=== PATIENT | female | born 1935 | race African-American/Black ===

== ENCOUNTER 2021-01-25 23:29 | Inpatient (IN) | payer OTHER ==
[~2021-01-25] VITALS: Ht 167.6 cm; Wt 45.8 kg
[2021-01-26] MEDS ORDERED: SODIUM CHLORIDE 0.9% 1,000 ML IV ONE (00:15)
[2021-01-26 00:58] LABS: HEMATOCRIT. 34.9 % (36.0-48.0); HEMOGLOBIN. 11.8 g/dL (12.0-16.0); MEAN CORPUSCULAR HEMOGLOBIN 27.2 pg (28.0-32.0); MEAN CORPUSCULAR VOLUME 80.3 fL (81.0-99.0); MEAN PLATELET VOLUME 7.9 fl (7.4-10.4); PLATELET 442 x1000/uL (130-400); RED BLOOD CELL COUNT 4.34 mill/uL (4.2-5.4); RED CELL DISTRIBUTION WIDTH 18.5 % (11.6-14.6)
[2021-01-26 01:04] LABS: CHLORIDE 103 mEq/L (98-107)
[2021-01-26 01:13] LABS: CREATINE KINASE 73 IU/L (26-192)
[2021-01-26 01:23] LABS: CLARITY URINE CLEAR (CLEAR); COLOR URINE DARK YELLOW (YELLOW); KETONES URINE 2+ (NEGATIVE); LEUKOCYTE ESTERASE URINE NEGATIVE (NEGATIVE); NITRITE URINE NEGATIVE (NEGATIVE); OCCULT BLOOD URINE NEGATIVE (NEGATIVE); PH URINE 5.5 (4.5-8.0); PROTEIN URINE 1+ (NEGATIVE)
[2021-01-26 01:27] LABS: PROTHROMBIN TIME 10.5 sec (9.6-11.0)
[2021-01-26 02:12] LABS: PLATELET ESTIMATE INCREASED
[2021-01-26] MEDS ORDERED: LOSA25TA3 MT (04:51)
[2021-01-26] MEDS ORDERED: CLON0.1T MT (04:51)
[2021-01-26] MEDS ORDERED: AMLO2.5T2 MT (04:51)
[2021-01-26 05:30] VITALS: BP 167/97
[2021-01-26] MEDS ORDERED: NITROGLYCERIN 0.4MG TABLET SL SL PRN (06:00)
[2021-01-26] MEDS ORDERED: IOHEXOL-300 100 ML BOTTLE ONE (06:20)
[2021-01-26] MEDS: CLONIDINE 0.1MG TABLET PO PRN (06:44)
[2021-01-26 08:00] VITALS: BP 153/93
[2021-01-26] MEDS ORDERED: ASPIRIN 81MG TABLET PO SCH (09:00)
[2021-01-26] MEDS ORDERED: ENOXAPARIN 40MG/0.4ML SYR SUBCUT SCH (09:00)
[2021-01-26] MEDS: ENOXAPARIN 30MG/0.3ML SYR SUBCUT SCH (09:43)
[2021-01-26] MEDS: METOPROLOL TARTRATE 50MG TABLET PO SCH ×2 (09:44→21:39)
[2021-01-26 10:30] VITALS: BP 153/93
[2021-01-26 10:34] LABS: HEMOGLOBIN. 12.1 g/dL (12.0-16.0); MEAN CORPUSCULAR HEMOGLOBIN 26.7 pg (28.0-32.0); MEAN CORPUSCULAR VOLUME 79.9 fL (81.0-99.0); MEAN PLATELET VOLUME 7.7 fl (7.4-10.4); PLATELET 432 x1000/uL (130-400); RED BLOOD CELL COUNT 4.51 mill/uL (4.2-5.4); RED CELL DISTRIBUTION WIDTH 18.6 % (11.6-14.6)
[2021-01-26] MEDS ORDERED: POTASSIUM CHLORIDE 20MEQ TABLET SR PO SCH (10:45)
[2021-01-26] MEDS ORDERED: BISACODYL 10MG SUPP PR SCH (10:45)
[2021-01-26 12:00] VITALS: BP 156/94
[2021-01-26] MEDS ORDERED: BISACODYL 10MG SUPP PR PRN (12:00)
[2021-01-26] MEDS: DEXT 5%/0.45% NACL KCL 20MEQ/L 1,000 ML IV SCH ×2 (13:00→21:39)
[2021-01-26] MEDS: AMLODIPINE 5MG TABLET PO SCH (13:07)
[2021-01-26 13:35] LABS: PLATELET ESTIMATE SLIGHTLY INCREASED
[2021-01-26 16:00] VITALS: BP 142/90
[2021-01-26] MEDS: LACTULOSE 20G/30ML UDC PO PRN (17:35)
[2021-01-26 20:00] VITALS: BP 145/82
[2021-01-27] VITALS: BP 159/83
[2021-01-27 04:00] VITALS: BP 148/83
[2021-01-27] MEDS: DEXT 5%/0.45% NACL KCL 20MEQ/L 1,000 ML IV SCH ×2 (06:40→17:43)
[2021-01-27 08:00] VITALS: BP 153/82
[2021-01-27] MEDS: METOPROLOL TARTRATE 50MG TABLET PO SCH ×2 (09:34→20:45)
[2021-01-27] MEDS: AMLODIPINE 5MG TABLET PO SCH (09:34)
[2021-01-27] MEDS: ENOXAPARIN 30MG/0.3ML SYR SUBCUT SCH (09:34)
[2021-01-27 12:00] VITALS: BP 106/62
[2021-01-27 16:00] VITALS: BP 146/90
[2021-01-27 17:41] LABS: HEMATOCRIT 31.8 % (36.0-48.0); HEMOGLOBIN 10.6 g/dL (12.0-16.0)
[2021-01-27] MEDS: LACTULOSE 20G/30ML UDC PO PRN (17:43)
[2021-01-27 20:00] VITALS: BP 150/90
[2021-01-27] MEDS: ATORVASTATIN CALCIUM 20MG TABLET PO SCH (20:43)
[2021-01-28] VITALS: BP 164/108
[2021-01-28] MEDS: DEXT 5%/0.45% NACL KCL 20MEQ/L 1,000 ML IV SCH ×3 (03:45→23:08)
[2021-01-28 04:00] VITALS: BP 162/92
[2021-01-28 08:00] VITALS: BP 155/91
[2021-01-28] MEDS: ENOXAPARIN 30MG/0.3ML SYR SUBCUT SCH (10:59)
[2021-01-28] MEDS: METOPROLOL TARTRATE 50MG TABLET PO SCH ×2 (10:59→21:33)
[2021-01-28] MEDS: AMLODIPINE 5MG TABLET PO SCH (11:00)
[2021-01-28 12:00] VITALS: BP 154/94
[2021-01-28 16:00] VITALS: BP 152/92
[2021-01-28 20:00] VITALS: BP 149/89
[2021-01-28] MEDS: ATORVASTATIN CALCIUM 20MG TABLET PO SCH (21:33)
[2021-01-28 21:45] LABS: BASOPHILS % 0.1 % (0.0-2.0); EOSINOPHILS % 0.1 % (0.0-5.0); HEMATOCRIT. 30.9 % (36.0-48.0); HEMOGLOBIN. 10.6 g/dL (12.0-16.0); LYMPHOCYTES % 15.6 % (20.0-50.0); MEAN CORPUSCULAR HEMOGLOBIN 27.2 pg (28.0-32.0); MEAN CORPUSCULAR VOLUME 79.5 fL (81.0-99.0); MEAN PLATELET VOLUME 8.3 fl (7.4-10.4); NEUTROPHILS % 78.2 % (40.0-76.0); PLATELET 349 x1000/uL (130-400); RED BLOOD CELL COUNT 3.89 mill/uL (4.2-5.4); RED CELL DISTRIBUTION WIDTH 18.6 % (11.6-14.6)
[2021-01-28 21:54] LABS: CHLORIDE 102 mEq/L (98-107)
[2021-01-29] VITALS: BP 139/80
[2021-01-29 04:00] VITALS: BP 141/89
[2021-01-29 08:00] VITALS: BP 169/96
[2021-01-29] MEDS: ENOXAPARIN 30MG/0.3ML SYR SUBCUT SCH (09:21)
[2021-01-29] MEDS: AMLODIPINE 5MG TABLET PO SCH (09:21)
[2021-01-29] MEDS: METOPROLOL TARTRATE 50MG TABLET PO SCH ×2 (09:22→21:21)
[2021-01-29] MEDS: DEXT 5%/0.45% NACL KCL 20MEQ/L 1,000 ML IV SCH ×2 (09:22→17:44)
[2021-01-29 12:00] VITALS: BP 156/99
[2021-01-29 16:00] VITALS: BP 157/91
[2021-01-29 20:00] VITALS: BP 153/93
[2021-01-29] MEDS: ATORVASTATIN CALCIUM 20MG TABLET PO SCH (21:21)
[2021-01-30] VITALS: BP 157/89
[2021-01-30 04:00] VITALS: BP 145/80
[2021-01-30] MEDS: DEXT 5%/0.45% NACL KCL 20MEQ/L 1,000 ML IV SCH ×2 (04:59→14:48)
[2021-01-30 08:00] VITALS: BP 157/95
[2021-01-30] MEDS: AMLODIPINE 5MG TABLET PO SCH (09:51)
[2021-01-30] MEDS: METOPROLOL TARTRATE 50MG TABLET PO SCH ×2 (09:51→20:34)
[2021-01-30] MEDS: ENOXAPARIN 30MG/0.3ML SYR SUBCUT SCH (09:51)
[2021-01-30 12:00] VITALS: BP 151/96
[2021-01-30 16:00] VITALS: BP 138/91
[2021-01-30 20:00] VITALS: BP 136/84
[2021-01-30] MEDS: ATORVASTATIN CALCIUM 20MG TABLET PO SCH (20:34)
[2021-01-31] VITALS: BP 134/85
[2021-01-31] MEDS: DEXT 5%/0.45% NACL KCL 20MEQ/L 1,000 ML IV SCH ×3 (00:11→20:58)
[2021-01-31 04:00] VITALS: BP 146/87
[2021-01-31 08:00] VITALS: BP 151/94
[2021-01-31] MEDS: AMLODIPINE 5MG TABLET PO SCH (09:14)
[2021-01-31] MEDS: METOPROLOL TARTRATE 50MG TABLET PO SCH ×2 (09:14→20:58)
[2021-01-31] MEDS: ENOXAPARIN 30MG/0.3ML SYR SUBCUT SCH (09:15)
[2021-01-31 12:00] VITALS: BP 133/79
[2021-01-31 13:38] LABS: CHLORIDE 102 mEq/L (98-107)
[2021-01-31 16:00] VITALS: BP 150/88
[2021-01-31] MEDS: PANTOPRAZOLE SODIUM 40 MG/VIAL IV SCH (16:38)
[2021-01-31 20:00] VITALS: BP 157/92
[2021-01-31] MEDS: ATORVASTATIN CALCIUM 20MG TABLET PO SCH (20:57)
[2021-02-01] VITALS: BP 159/84
[2021-02-01 04:00] VITALS: BP 163/83
[2021-02-01] MEDS: CLONIDINE 0.1MG TABLET PO PRN (04:08)
[2021-02-01] MEDS: DEXT 5%/0.45% NACL KCL 20MEQ/L 1,000 ML IV SCH ×2 (07:00→16:31)
[2021-02-01 08:00] VITALS: BP 147/84
[2021-02-01] MEDS: METOPROLOL TARTRATE 50MG TABLET PO SCH ×2 (08:45→21:04)
[2021-02-01] MEDS: AMLODIPINE 5MG TABLET PO SCH (08:45)
[2021-02-01] MEDS: PANTOPRAZOLE SODIUM 40 MG/VIAL IV SCH ×2 (08:45→16:42)
[2021-02-01] MEDS: ENOXAPARIN 30MG/0.3ML SYR SUBCUT SCH (08:46)
[2021-02-01 09:23] LABS: HEMATOCRIT 27.7 % (36.0-48.0); HEMOGLOBIN 9.4 g/dL (12.0-16.0); MEAN CORPUSCULAR HEMOGLOBIN 27.4 pg (28.0-32.0); MEAN CORPUSCULAR VOLUME 80.6 fL (81.0-99.0); PLATELET 311 x1000/uL (130-400); RED BLOOD CELL COUNT 3.43 mill/uL (4.2-5.4)
[2021-02-01 09:28] LABS: CHLORIDE 103 mEq/L (98-107)
[2021-02-01 09:34] LABS: TOTAL IRON BINDING CAPACITY 208 ug/dL (250-450)
[2021-02-01 10:13] LABS: VITAMIN B12 SERUM >2000 pg/mL pg/mL (211-911)
[2021-02-01 11:47] LABS: FERRITIN 37 ng/mL (10-291)
[2021-02-01 12:03] VITALS: BP 142/83
[2021-02-01] MEDS ORDERED: SORBITOL 70% SOLN 30ML PO NR (12:45)
[2021-02-01] MEDS: LACTULOSE 20G/30ML UDC PO PRN (13:03)
[2021-02-01] MEDS: FOLIC ACID 1MG TABLET PO SCH (13:03)
[2021-02-01 16:00] VITALS: BP 136/74
[2021-02-01 20:00] VITALS: BP 136/80
[2021-02-01] MEDS: ATORVASTATIN CALCIUM 20MG TABLET PO SCH (21:04)
[2021-02-02] VITALS: BP 150/89
[2021-02-02 04:00] VITALS: BP 149/82
[2021-02-02] MEDS: DEXT 5%/0.45% NACL KCL 20MEQ/L 1,000 ML IV SCH ×2 (04:38→13:10)
[2021-02-02 07:00] LABS: PROTHROMBIN TIME 10.7 sec (9.6-11.0)
[2021-02-02 07:01] LABS: BASOPHILS % 0.6 % (0.0-2.0); EOSINOPHILS % 0.5 % (0.0-5.0); HEMATOCRIT. 25.8 % (36.0-48.0); HEMOGLOBIN. 8.9 g/dL (12.0-16.0); LYMPHOCYTES % 14.1 % (20.0-50.0); MEAN CORPUSCULAR HEMOGLOBIN 27.8 pg (28.0-32.0); MEAN CORPUSCULAR VOLUME 80.2 fL (81.0-99.0); MEAN PLATELET VOLUME 7.6 fl (7.4-10.4); MONOCYTES % 8.5 % (2.0-8.0); NEUTROPHILS % 76.3 % (40.0-76.0); PLATELET 308 x1000/uL (130-400); RED BLOOD CELL COUNT 3.21 mill/uL (4.2-5.4)
[2021-02-02 07:24] LABS: CHLORIDE 103 mEq/L (98-107)
[2021-02-02 08:00] VITALS: BP 136/83
[2021-02-02] MEDS: FOLIC ACID 1MG TABLET PO SCH (08:45)
[2021-02-02] MEDS: METOPROLOL TARTRATE 50MG TABLET PO SCH ×2 (08:45→21:36)
[2021-02-02] MEDS: AMLODIPINE 5MG TABLET PO SCH (08:46)
[2021-02-02] MEDS: PANTOPRAZOLE SODIUM 40 MG/VIAL IV SCH ×2 (08:46→21:36)
[2021-02-02] MEDS ORDERED: CARV25TA47 MT (09:01)
[2021-02-02] MEDS ORDERED: CLON1PAT11 TP (09:04)
[2021-02-02] MEDS ORDERED: FURO20TA4 MT (09:04)
[2021-02-02] MEDS ORDERED: OMEP10CA5 MT (09:04)
[2021-02-02] MEDS ORDERED: ELVI1TAB3 MT (09:04)
[2021-02-02 12:00] VITALS: BP_SYST 155; BP_SYST 96; BP_DIAS 63; BP_DIAS 92
[2021-02-02] MEDS ORDERED: CEFAZOLIN 1000MG PREMIX 50 ML IV NR (14:30)
[2021-02-02 16:00] VITALS: BP 155/92
[2021-02-02] MEDS ORDERED: MIDAZOLAM HCL 5 MG/5 ML VIAL IV PRN (17:15)
[2021-02-02] MEDS ORDERED: MIDAZOLAM HCL 5 MG/5 ML VIAL ONE (17:19)
[2021-02-02] MEDS ORDERED: FENTANYL CITRATE/PF 50MCG/ML 2ML VIAL ONE (17:20)
[2021-02-02] MEDS ORDERED: FENTANYL CITRATE/PF 50MCG/ML 2ML VIAL IV PRN (17:20)
[2021-02-02 19:47] LABS: HEPATITIS B SURFACE ANTIGEN NEGATIVE
[2021-02-02 20:00] VITALS: BP 117/57
[2021-02-02] MEDS ORDERED: MORPHINE SULFATE 2 MG/ML CPJ (NOT FOR IM USE) IV SCH (20:15)
[2021-02-02] MEDS: ATORVASTATIN CALCIUM 20MG TABLET PO SCH (21:37)
[2021-02-03] VITALS: BP 140/89
[2021-02-03] MEDS: DEXT 5%/0.45% NACL KCL 20MEQ/L 1,000 ML IV SCH ×3 (04:32→18:21)
[2021-02-03 08:00] VITALS: BP 148/90
[2021-02-03] MEDS: PANTOPRAZOLE SODIUM 40 MG/VIAL IV SCH ×2 (08:31→17:37)
[2021-02-03] MEDS: FOLIC ACID 1MG TABLET PO SCH (08:31)
[2021-02-03] MEDS: AMLODIPINE 5MG TABLET PO SCH (10:42)
[2021-02-03] MEDS: METOPROLOL TARTRATE 50MG TABLET PO SCH ×2 (10:42→21:04)
[2021-02-03 12:00] VITALS: BP 160/90
[2021-02-03 16:00] VITALS: BP 138/78
[2021-02-03 20:00] VITALS: BP 144/85
[2021-02-03] MEDS: ATORVASTATIN CALCIUM 20MG TABLET PO SCH (21:00)
[2021-02-04] VITALS: BP 156/83
[2021-02-04 04:00] VITALS: BP 150/88
[2021-02-04] MEDS: DEXT 5%/0.45% NACL KCL 20MEQ/L 1,000 ML IV SCH ×2 (05:19→14:39)
[2021-02-04 08:00] VITALS: BP 160/95
[2021-02-04] MEDS: METOPROLOL TARTRATE 50MG TABLET PO SCH ×2 (08:51→21:00)
[2021-02-04] MEDS: FOLIC ACID 1MG TABLET PO SCH (08:51)
[2021-02-04] MEDS: PANTOPRAZOLE SODIUM 40 MG/VIAL IV SCH ×2 (08:52→16:11)
[2021-02-04] MEDS: AMLODIPINE 5MG TABLET PO SCH (08:52)
[2021-02-04 12:00] VITALS: BP 146/62
[2021-02-04 16:00] VITALS: BP 153/80
[2021-02-04 20:00] VITALS: BP 102/71
[2021-02-04] MEDS: ATORVASTATIN CALCIUM 20MG TABLET PO SCH (21:28)
[2021-02-05] VITALS: BP 110/80
[2021-02-05] MEDS: DEXT 5%/0.45% NACL KCL 20MEQ/L 1,000 ML IV SCH ×3 (00:56→20:50)
[2021-02-05 04:00] VITALS: BP 152/80
[2021-02-05 08:00] VITALS: BP 146/73
[2021-02-05] MEDS: FOLIC ACID 1MG TABLET PO SCH (09:38)
[2021-02-05] MEDS: PANTOPRAZOLE SODIUM 40 MG/VIAL IV SCH ×2 (09:38→17:10)
[2021-02-05] MEDS: METOPROLOL TARTRATE 50MG TABLET PO SCH ×2 (09:39→20:51)
[2021-02-05] MEDS: AMLODIPINE 5MG TABLET PO SCH (09:39)
[2021-02-05 12:00] VITALS: BP 138/71
[2021-02-05 16:00] VITALS: BP 147/75
[2021-02-05 20:00] VITALS: BP 154/79
[2021-02-05] MEDS: ATORVASTATIN CALCIUM 20MG TABLET PO SCH (20:51)
[2021-02-06] VITALS: BP 141/70
[2021-02-06 04:00] VITALS: BP 139/64
[2021-02-06] MEDS: DEXT 5%/0.45% NACL KCL 20MEQ/L 1,000 ML IV SCH ×2 (06:02→16:49)
[2021-02-06 08:00] VITALS: BP 175/91
[2021-02-06] MEDS: FOLIC ACID 1MG TABLET PO SCH (09:14)
[2021-02-06] MEDS: PANTOPRAZOLE SODIUM 40 MG/VIAL IV SCH ×2 (09:14→16:49)
[2021-02-06] MEDS: AMLODIPINE 5MG TABLET PO SCH (09:16)
[2021-02-06] MEDS: METOPROLOL TARTRATE 50MG TABLET PO SCH ×2 (09:16→21:50)
[2021-02-06] MEDS: HYDROCODONE/ACETAMINOPHEN 5/325MG TABLET PO PRN ×2 (09:18→15:35)
[2021-02-06 10:21] LABS: BASOPHILS % 0.5 % (0.0-2.0); EOSINOPHILS % 0.3 % (0.0-5.0); HEMATOCRIT. 23.7 % (36.0-48.0); HEMOGLOBIN. 7.9 g/dL (12.0-16.0); LYMPHOCYTES % 8.4 % (20.0-50.0); MEAN CORPUSCULAR HEMOGLOBIN 27.7 pg (28.0-32.0); MEAN CORPUSCULAR VOLUME 82.8 fL (81.0-99.0); NEUTROPHILS % 84.8 % (40.0-76.0); PLATELET 326 x1000/uL (130-400); RED BLOOD CELL COUNT 2.86 mill/uL (4.2-5.4)
[2021-02-06 10:35] LABS: CHLORIDE 105 mEq/L (98-107)
[2021-02-06 12:00] VITALS: BP 133/74
[2021-02-06 16:00] VITALS: BP 132/74
[2021-02-06 20:00] VITALS: BP 116/58
[2021-02-06] MEDS: ATORVASTATIN CALCIUM 20MG TABLET PO SCH (21:49)
[2021-02-07] VITALS: BP 111/62
[2021-02-07] MEDS: HYDROCODONE/ACETAMINOPHEN 5/325MG TABLET PO PRN ×3 (00:29→21:02)
[2021-02-07] MEDS: DEXT 5%/0.45% NACL KCL 20MEQ/L 1,000 ML IV SCH (03:00)
[2021-02-07 04:00] VITALS: BP 131/69
[2021-02-07 08:00] VITALS: BP 139/82
[2021-02-07 08:10] LABS: CHLORIDE 105 mEq/L (98-107)
[2021-02-07] MEDS: FOLIC ACID 1MG TABLET PO SCH (08:25)
[2021-02-07] MEDS: METOPROLOL TARTRATE 50MG TABLET PO SCH ×2 (08:25→21:02)
[2021-02-07] MEDS: PANTOPRAZOLE SODIUM 40 MG/VIAL IV SCH ×2 (08:25→16:09)
[2021-02-07] MEDS: AMLODIPINE 5MG TABLET PO SCH (08:25)
[2021-02-07 08:57] LABS: BASOPHILS % 0.7 % (0.0-2.0); EOSINOPHILS % 0.3 % (0.0-5.0); HEMATOCRIT. 26.7 % (36.0-48.0); HEMOGLOBIN. 8.3 g/dL (12.0-16.0); LYMPHOCYTES % 11.1 % (20.0-50.0); MEAN CORPUSCULAR HEMOGLOBIN 27.9 pg (28.0-32.0); MEAN CORPUSCULAR VOLUME 90.1 fL (81.0-99.0); MEAN PLATELET VOLUME 6.7 fl (7.4-10.4); MONOCYTES % 4.5 % (2.0-8.0); NEUTROPHILS % 83.4 % (40.0-76.0); PLATELET 353 x1000/uL (130-400); RED BLOOD CELL COUNT 2.96 mill/uL (4.2-5.4); RED CELL DISTRIBUTION WIDTH 21.4 % (11.6-14.6)
[2021-02-07 16:00] VITALS: BP 148/81
[2021-02-07 17:37] VITALS: BP 118/57
[2021-02-07 20:00] VITALS: BP 124/66
[2021-02-07] MEDS: ATORVASTATIN CALCIUM 20MG TABLET PO SCH (21:02)
[2021-02-08] VITALS: BP 120/69
[2021-02-08 04:00] VITALS: BP 150/80
[2021-02-08 08:00] VITALS: BP 146/81
[2021-02-08] MEDS: AMLODIPINE 5MG TABLET PO SCH (08:47)
[2021-02-08] MEDS: FOLIC ACID 1MG TABLET PO SCH (08:47)
[2021-02-08] MEDS: PANTOPRAZOLE SODIUM 40 MG/VIAL IV SCH ×2 (08:47→17:00)
[2021-02-08] MEDS: METOPROLOL TARTRATE 50MG TABLET PO SCH ×2 (08:48→21:27)
[2021-02-08 12:00] VITALS: BP 130/78
[2021-02-08 16:00] VITALS: BP 135/79
[2021-02-08] MEDS: LACTULOSE 20G/30ML UDC PO PRN (19:25)
[2021-02-08 20:00] VITALS: BP 131/77
[2021-02-08] MEDS ORDERED: NALOXONE HCL 0.4MG/ML VIAL IV PRN (21:00)
[2021-02-08] MEDS: ATORVASTATIN CALCIUM 20MG TABLET PO SCH (21:27)
[2021-02-08] MEDS: HYDROCODONE/ACETAMINOPHEN 5/325MG TABLET PO PRN (21:27)
[2021-02-09] VITALS (7 sets, daily range): BP systolic 122–154; BP diastolic 60–76
[2021-02-09] MEDS: PANTOPRAZOLE SODIUM 40 MG/VIAL IV SCH ×2 (08:46→18:16)
[2021-02-09] MEDS: METOPROLOL TARTRATE 50MG TABLET PO SCH ×2 (08:46→20:52)
[2021-02-09] MEDS: AMLODIPINE 5MG TABLET PO SCH (08:47)
[2021-02-09] MEDS: FOLIC ACID 1MG TABLET PO SCH (08:47)
[2021-02-09] MEDS: ATORVASTATIN CALCIUM 20MG TABLET PO SCH (20:52)
[2021-02-09] MEDS: HYDROCODONE/ACETAMINOPHEN 5/325MG TABLET PO PRN (22:26)
[2021-02-10] VITALS: BP 109/57
[2021-02-10 04:00] VITALS: BP 116/68
[2021-02-10] MEDS: FOLIC ACID 1MG TABLET PO SCH (09:11)
[2021-02-10] MEDS: METOPROLOL TARTRATE 50MG TABLET PO SCH ×2 (09:11→21:05)
[2021-02-10] MEDS: PANTOPRAZOLE SODIUM 40 MG/VIAL IV SCH ×2 (09:11→17:22)
[2021-02-10] MEDS: AMLODIPINE 5MG TABLET PO SCH (09:12)
[2021-02-10 20:00] VITALS: BP 136/77
[2021-02-10] MEDS: ATORVASTATIN CALCIUM 20MG TABLET PO SCH (21:05)
[2021-02-10] MEDS: HYDROCODONE/ACETAMINOPHEN 5/325MG TABLET PO PRN (21:07)
[2021-02-11] VITALS: BP 132/78
[2021-02-11 04:00] VITALS: BP 136/75
[2021-02-11] MEDS: HYDROCODONE/ACETAMINOPHEN 5/325MG TABLET PO PRN (05:54)
[2021-02-11 08:00] VITALS: BP 144/81
[2021-02-11] MEDS: PANTOPRAZOLE SODIUM 40 MG/VIAL IV SCH (09:34)
[2021-02-11] MEDS: FOLIC ACID 1MG TABLET PO SCH (09:37)
[2021-02-11] MEDS: METOPROLOL TARTRATE 50MG TABLET PO SCH (09:37)
[2021-02-11] MEDS: AMLODIPINE 5MG TABLET PO SCH (09:43)
[2021-02-11 12:00] VITALS: BP 146/84
[2021-02-11 12:46] VITALS: BP 146/84
== END 2021-02-11 16:00 | DRG 280 ==
LOC: ER 23:29 → 7EST 01-26 03:48 → EDBEDREQ 01-26 03:51 → EDBEDREQTM 01-26 03:51 → ENRESERV 01-26 04:08 → 6EST 02-03 12:40
PROVIDERS: ADMIT Internal Medicine; ATTEND Internal Medicine
PROC: 0DH63UZ Insertion of Feeding Device into Stomach, Percutaneous Approach (ICD-10-PCS; principal; 2021-02-02)
DX: I21.4 Non-ST elevation (NSTEMI) myocardial infarction (principal); N17.0 Acute kidney failure with tubular necrosis; K29.71 Gastritis, unspecified, with bleeding; E44.1 Mild protein-calorie malnutrition; Z68.1 Body mass index [BMI] 19.9 or less, adult; I10 Essential (primary) hypertension; F03.90 Unspecified dementia, unspecified severity, without behavioral disturbance, psychotic disturbance, mood disturbance, and anxiety; E78.5 Hyperlipidemia, unspecified; E87.6 Hypokalemia; K59.00 Constipation, unspecified; N28.1 Cyst of kidney, acquired; D25.9 Leiomyoma of uterus, unspecified; D50.9 Iron deficiency anemia, unspecified; Z20.822 Contact with and (suspected) exposure to COVID-19; K44.9 Diaphragmatic hernia without obstruction or gangrene; Z60.2 Problems related to living alone; K57.30 Diverticulosis of large intestine without perforation or abscess without bleeding; R62.7 Adult failure to thrive; Z93.1 Gastrostomy status; Z86.73 Personal history of transient ischemic attack (TIA), and cerebral infarction without residual deficits; Z79.899 Other long term (current) drug therapy
CPT/HCPCS: 36415; 71045; 74018; 74177; 80048; 80053; 80061; 80076; 81003; 82248; 82270; 82550; 82607; 82728; 82746; 83036; 83540; 83550; 83605; 83880; 84132; 84439; 84443; 84484; 85014; 85018; 85025; 85027; 85044; 86703; 86705; 86709; 86803; 86850; 86900; 87340; 87426; 93005; 97162; 99285; C1893; C9113; J0690; J1650; J2250; J2270; J3010; J7030; Q9967; A4315